=== PATIENT | female | born 1935 | race Caucasian/White ===

== ENCOUNTER 2018-02-25 06:52 | Day surgery (SDC) | payer MEDICARE, BC ==
[~2018-02-25] VITALS: Ht 154.9 cm; Wt 90.6 kg
[~2018-02-25 06:52] MED LIST: AMPICILLIN500 MG PO; ANTI-GAS 8080 MG PO; ASPIRIN 32325 MG/TAB PO; B-12 100 MCG PO; CALCIUM 1200 W/1 SGL PO; CARDI-OMEGA1000 MG PO; CLARITIN 1010 MG/TAB PO; CO Q-1050 MG PO; COUMADIN 22.5 MG/TAB PO; FOLIC ACID 40400 MCG PO; HYDRODIURIL50 MG PO; LASIX 40MG TABL40 MG PO; LIPITOR20 MG PO; LOTENSIN 1010 MG/TAB PO; LOTENSIN20 MG PO; MICRO-K EXTENCA8 MEQ PO; SINGULAIR 110 MG/TAB PO; SLOW K PO; SYNTHROID 0.0.025 MG PO; TYLENOL 8 HR PO; ULTRAM 50MG TAB50 MG PO; VITAMIN C500 MG PO; VITAMIN D31000 IU PO; VITAMIN E100 I3 PO
[2018-02-25] MEDS ORDERED: ZYRTEC 10MG10 MG PO (07:40)
[2018-02-25] MEDS ORDERED: PHARMASSURE CHE30 MG PO (07:42)
[2018-02-25] MEDS ORDERED: PROBIOTIC FORMU1 CAP PO (07:44)
[2018-02-25] MEDS ORDERED: LACTAID3000 UNIT PO (07:46)
[2018-02-25] MEDS ORDERED: LUTEIN20 M1 PO (07:47)
[2018-02-25 08:09] VITALS: BP 134/72; PULSE 63; TEMP 98.2
[2018-02-25 09:52] VITALS: BP 137/58; PULSE 60; TEMP 97.5
[2018-02-25 10:07] VITALS: BP 120/70; PULSE 59
[2018-02-25 10:22] VITALS: BP 136/63; PULSE 60
[2018-02-25 10:37] VITALS: BP 124/66; PULSE 60
[2018-02-25 11:07] VITALS: BP 124/54; PULSE 59
== END 2018-02-25 11:10 | disposition home or self-care (01) ==
LOC: SDCO 06:52
DX: G56.01 Carpal tunnel syndrome, right upper limb (principal); Z88.6 Allergy status to analgesic agent; Z88.4 Allergy status to anesthetic agent; Z88.1 Allergy status to other antibiotic agents; Z88.5 Allergy status to narcotic agent; Z88.8 Allergy status to other drugs, medicaments and biological substances; Z91.040 Latex allergy status; Z79.82 Long term (current) use of aspirin; E78.5 Hyperlipidemia, unspecified; I10 Essential (primary) hypertension; M81.0 Age-related osteoporosis without current pathological fracture; Z95.0 Presence of cardiac pacemaker; Z96.651 Presence of right artificial knee joint; Z87.891 Personal history of nicotine dependence; Z80.9 Family history of malignant neoplasm, unspecified; Z82.62 Family history of osteoporosis
CPT/HCPCS: J0670; J0690; J2250; J2405; J2704; J3010; J7120